=== PATIENT | male | born 1975 | race Caucasian/White ===

== ENCOUNTER → 2017-02-15 | Outpatient (CLI) | payer BC | LOC: COL.RAD 02-13 10:00 | DX: S43.492A Other sprain of left shoulder joint, initial encounter (principal) | CPT/HCPCS: A9585; Q9967 ==

== ENCOUNTER 2018-08-31 13:50 | Emergency (ER) | payer OTHER ==
[~2018-08-31] VITALS: Ht 180.3 cm; Wt 97.7 kg
[2018-08-31 13:55] VITALS: TEMP 98.2
[2018-08-31] MEDS ORDERED: NORCO 325 MG-51 TAB PO (14:38)
[2018-08-31 15:04] VITALS: BP 110/74; PULSE 97
== END 2018-08-31 15:06 | disposition home or self-care (01) ==
LOC: COL.ER 13:50
DX: S92.002A Unspecified fracture of left calcaneus, initial encounter for closed fracture (principal); W17.89XA Other fall from one level to another, initial encounter
CPT/HCPCS: Q4045

== ENCOUNTER 2020-11-28 15:50 | Emergency (ER) | payer OTHER ==
[~2020-11-28] VITALS: Ht 180.3 cm; Wt 100.0 kg
[~2020-11-28 15:50] MED LIST: NORCO 325 MG-51 TAB PO
[2020-11-28 15:58] VITALS: TEMP 97.1
[2020-11-28 16:59] LABS: BASO # 0.1 (0.0-0.2); BASO % 0.9 % (0.0-2.0); EOS # 0.5 (0.0-0.7); EOS % 7.5 % (0-4.0); GRAN # 3.8 (1.4-6.5); GRAN % 60.2 % (42.2-75.2); HEMATOCRIT 45.9 % (42.0-52.0); HEMOGLOBIN 15.8 g/dl (13.5-18.0); LYMPH # 1.2 (1.2-3.4); LYMPH % 19.3 % (20.0-51.0); MEAN CELL VOLUME 89 fl (80.0-100.0); MEAN CORPUSCULAR HEMOGLOBIN 31 pg (27.0-31.0); MEAN CORPUSCULAR HGB CONC 34 g/dl (33.0-37.0); MONO # 0.8 (0.1-0.6); MONO % 11.9 % (1.7-9.3); PLATELET COUNT 244 K/mm3 (130-400); RED BLOOD COUNT 5.17 M/mm3 (4.20-5.60); REDCELL DISTRIBUTION WIDTH-CV 11.9 % (11.5-14.5)
[2020-11-28 17:15] LABS: ALBUMIN 4.6 gm/dL (3.5-5.0); BILIRUBIN,TOTAL 0.6 mg/dL (0.0-1.0); CALCIUM 9.7 mg/dL (8.4-10.2); CREATININE, serum 0.86 (0.66-1.25); POTASSIUM 3.9 mmol/L (3.4-5.0); TOTAL PROTEIN 8.2 gm/dL (6.4-8.2)
[2020-11-28 17:45] VITALS: BP 150/90; PULSE 80
== END 2020-11-28 17:50 | disposition home or self-care (01) ==
LOC: COL.ER 15:50
PROVIDERS: Personal Emergency Response Attendant
DX: S93.602A Unspecified sprain of left foot, initial encounter (principal); X58.XXXA Exposure to other specified factors, initial encounter

== ENCOUNTER → 2020-11-30 | Outpatient (CLI) | payer OTHER | LOC: COL.VAS 07:34 | DX: M79.89 Other specified soft tissue disorders (principal) ==